=== PATIENT | male | born 1935 | race Two or more races ===

== ENCOUNTER 2021-04-04 18:44 | Emergency (ER) | payer MEDICARE, MEDICAID ==
[~2021-04-04] VITALS: Ht 162.6 cm; Wt 75.0 kg
[2021-04-04 18:53] VITALS: BP 115/59
[2021-04-04] MEDS ORDERED: SODIUM CHLORIDE 0.9% 1,000 ML IV ONE (19:30)
== END 2021-04-04 19:27 | disposition left against medical advice (07) ==
LOC: ER 18:44
DX: R11.10 Vomiting, unspecified (principal)
CPT/HCPCS: 99283; J7030